=== PATIENT | male | born 1950 | race Caucasian/White ===

== ENCOUNTER 2018-04-19 15:26 | Emergency (ER) | payer SELFPAY ==
[~2018-04-19] VITALS: Ht 177.8 cm; Wt 68.2 kg
[2018-04-19 15:32] VITALS: Ht 177.8 cm; Wt 68.2 kg
[2018-04-19 15:47] LABS: APPEARANCE CLEAR (CLEAR); BILIRUBIN NEGATIVE (NEGATIVE); COLOR YELLOW (YELLOW); GLUCOSE 1000 mg/dL (NEGATIVE); KETONE SMALL mg/dL (NEGATIVE); NITRITE NEGATIVE (NEGATIVE); PROTEIN NEGATIVE (NEGATIVE); SPECIFIC GRAVITY 1.025 (1.005-1.020); UROBILINOGEN NORMAL (NORMAL)
[2018-04-19 15:48] LABS: WHITE CELLS - URINE 0-5 /hpf (0-5)
[2018-04-19 15:49] LABS: RED CELLS - URINE 25-50 /hpf (0-5)
[2018-04-19 15:50] LABS: BACTERIA FEW /hpf (NONE SEEN); EPITHELIAL CELLS 0-5 /hpf (0-5); YEAST OCC /hpf (NONE SEEN)
[2018-04-19 16:05] LABS: BASOPHILS 0.1 % (0-2); EOSINOPHILS 0 % (0-7); HEMOGLOBIN 13.9 g/dL (13.5-17.5); IMMATURE GRANULOCYTES 0.2 % (0-5); LYMPHOCYTES 4.5 % (15-50); MCH 30.9 pg (26.0-34.0); MCHC 33.9 g/dL (31.0-37.0); MCV 91.1 fL (80.0-100.0); MONOCYTES 5.1 % (2-11); NEUTROPHILS 90.1 % (40-80); PLATELET COUNT 222 10x3/uL (130-400); RDW 12.4 % (11.5-14.5); WBC 13.2 10x3/uL (4.8-10.8)
[2018-04-19 16:20] LABS: ALBUMIN 4.1 g/dL (3.4-5.0); ALKALINE PHOSPHATASE 73 U/L (46-116); ALT (SGPT) 34 U/L (10-68); BILIRUBIN - TOTAL 0.51 mg/dL (0.2-1.3); CALC OSMOLALITY 279 mosm/kg (275-300); CALCIUM 9.3 mg/dL (8.5-10.1); CARBON DIOXIDE 25.7 mmol/L (21.0-32.0); CHLORIDE - SERUM 103 mmol/L (98-107); CREATININE - SERUM 1.4 mg/dL (0.6-1.3); GLUCOSE 157 mg/dL (74-106); POTASSIUM - SERUM 3.9 mmol/L (3.5-5.1); PROTEIN - SERUM 7.4 g/dL (6.4-8.2); SODIUM 139 mmol/L (136-145); UREA NITROGEN 10 mg/dL (7-18); eGFR NON AFRICAN AMERICAN 53 mL/min (90-120)
[2018-04-19 16:24] LABS: AMYLASE - SERUM 60 U/L (25-115)
[2018-04-19 16:26] LABS: TROPONIN-I < 0.017 ng/mL (0.000-0.060)
[2018-04-19 16:31] LABS: LIPASE 182 U/L (73-393)
[2018-04-19] MEDS ORDERED: TYLENOL W/CODEI1 TAB PO (17:54)
[2018-04-19] MEDS ORDERED: FLOMAX0.4 MG PO (17:54)
[2018-04-19] MEDS ORDERED: TORADOL10 MG PO (17:54)
[2018-04-19 18:24] VITALS: BP 119/59
== END 2018-04-19 18:25 | disposition home or self-care (01) ==
LOC: D.ER 15:26
PROVIDERS: Family Medicine
DX: N20.0 Calculus of kidney (principal)